=== PATIENT | female | born 1965 | race Caucasian/White ===

== ENCOUNTER 2017-08-16 18:57 | Emergency (ER) | payer OTHER ==
[~2017-08-16] VITALS: Ht 167.6 cm; Wt 66.5 kg
[~2017-08-16 18:57] MED LIST: BUPR150T3 PO; OMEG100037 PO; Topiramate PO; VITA200017 PO; Ziprasidone PO
[2017-08-16] MEDS ORDERED: IOHEXOL 350 MG/ML 10 ML VIAL (for RAD DIAG) IVCONTRAST ONE (18:58)
[2017-08-16 19:00] VITALS: BP 182/85; PULSE 140; RESP 18; TEMP 98.7; O2SAT 99
[2017-08-16] MEDS ORDERED: SODIUM CHLOR 0.9% 1000 ML INJ 1,000 ML IV SCH (19:16)
[2017-08-16 19:17] VITALS: BP 167/89; PULSE 119; RESP 18; O2SAT 98
[2017-08-16] MEDS ORDERED: BUPR300T PO (19:18)
[2017-08-16] MEDS ORDERED: TOPI200T7 PO (19:18)
[2017-08-16] MEDS ORDERED: TRAM50TA PO (19:19)
[2017-08-16] MEDS ORDERED: BACL10TA PO (19:19)
[2017-08-16] MEDS ORDERED: VITA100064 PO (19:19)
[2017-08-16] MEDS ORDERED: DIAZ5TAB PO (19:19)
[2017-08-16] MEDS ORDERED: CALC1TAB87 PO (19:20)
[2017-08-16] MEDS ORDERED: OMEG1CAP28 PO (19:20)
--- NOTE | 2017-08-16 19:28 | PD ---
HPI Chief Complaint: Abdominal Pain Time Seen by Provider: 19:16 Travel History International Travel<30 days: No Contact w/Intl Traveler<30days: No Traveled to known affect area: No History of Present Illness HPI 51-year-old female presents to the emergency department for complaint of 2 days of progressively worsening right lower quadrant abdominal pain. Patient does complain of some mild anorexia but denies fever chills nausea or vomiting. Patient's had no flank pain dysuria frequency urgency or hematuria. No diarrhea no report of black or tarry stools. Patient states symptoms worsened after rectal exam during her gynecologic visit on Sunday. Patient's been having umbilical pain intermittently for approximately 1 month. Patient has chronic low back pain with herniated lumbar disc and has at times referred pain. Patient states pain is not responding to tramadol. Patient was told by her managing physician she would need a CAT scan. Patient denies any injury or fall. Patient denies any referred lower extremity numbness tingling or weakness bladder or bowel dysfunction or saddle anesthesia. Patient rates pain as moderate to severe, 6/10. Patient is unable to identify specific exacerbating or alleviating factors. Past history is significant for lumbar disc disease osteoarthritis hysterectomy easy bruising dyslipidemia generalized anxiety disorder and episodic tachycardia. Patient reports she recently just had a pelvic exam that was unremarkable. Patient's had no abnormal vaginal discharge or vaginal bleeding; is not sexually active. [facility] Past Medical History Narrative Medical lumbar disc disease osteoarthritis hysterectomy easy bruising dyslipidemia generalized anxiety disorder w/ episodic tachycardia; no tobacco use no alcohol use; nursing notes reviewed Blood Disorders: Yes (before having hysterectomy) Bipolar Disorder: Yes Anxiety: Yes Cardiovascular Problems: Yes (high chol.) Tetanus Vaccination: > 5 Years Influenza Vaccination: No ?: Not Past Surgical History Hysterectomy: Yes Social History Alcohol Use: No Tobacco Use: No Substance Use: No Allergies-Medications (Allergen,Severity, Reaction): Coded Allergies: codeine (Unverified Allergy, Severe, Nausea/Vomiting, 08/16/17) erythromycin base (Unverified Allergy, Severe, Diarrhea, 08/16/17) Reported Meds & Prescriptions Reported Meds & Active Scripts Active Reported Calcium 600 with Vitamin D (Calcium Carbonate-Cholecalciferol) 600-400 mg-Unit Tab 1 Tab PO DAILY Ssvnd-9-Onrp Ethyl Esters 1 Gm Cap 1 Gm PO DAILY Diazepam 5 Mg Tab 5 Mg PO BID PRN Vitamin D3 (Cholecalciferol) 1,000 Unit Tab 1,000 Units PO DAILY Tramadol (Tramadol HCl) 50 Mg Tab 50 Mg PO Q8H PRN Baclofen 10 Mg Tab 10 Mg PO BID Topiramate 200 Mg Tab 200 Mg PO BID Bupropion HCl ER 24 HR (Bupropion HCl) 300 Mg Tab 300 Mg PO DAILY Review of Systems Except as stated in HPI: all other systems reviewed are Neg General / Constitutional: No: Fever, Chills HENT: No: Congestion Cardiovascular: No: Chest Pain or Discomfort Respiratory: No: Shortness of Breath Gastrointestinal: Positive: Abdominal Pain, No: Vomiting Genitourinary: No: Dysuria, Flank Pain Musculoskeletal: No: Myalgias, Arthralgias Skin: No Rash Neurologic: No: Weakness Psychiatric: Positive: Anxiety Hematologic/Lymphatic: No: Lymph Node Enlargement Physical Exam Narrative GENERAL: Well-developed well-nourished female no acute distress no respiratory distress SKIN: Warm and dry. No rash. HEAD: Normocephalic. EYES: No scleral icterus. No injection or drainage. NECK: Supple, trachea midline. No JVD or lymphadenopathy. CARDIOVASCULAR: Increased regular rate and rhythm without murmurs, gallops, or rubs. RESPIRATORY: Breath sounds equal bilaterally. No accessory muscle use. GASTROINTESTINAL: Abdomen soft, reproducible periumbilical and right lower quadrant tenderness to palpation without guarding or rebound, nondistended. MUSCULOSKELETAL: No cyanosis, or edema. BACK: Nontender without obvious deformity. No CVA tenderness. Data Data Last Documented VS Vital Signs Date Time Temp Pulse Resp B/P (MAP) Pulse Ox O2 Delivery O2 Flow Rate FiO2 08/16/17 20:23 90 16 137/65 (89) 99 Room Air 08/16/17 19:00 98.7 Orders Orders Complete Blood Count With Diff (08/16/17 19:16) Comprehensive Metabolic Panel (08/16/17 19:16) Lipase (08/16/17 19:16) Urinalysis - C+S If Indicated (08/16/17 19:16) Ct Abd/Pel W Iv Contrast(Rout) (08/16/17 19:16) Iv Access Insert/Monitor (08/16/17 19:16) Ecg Monitoring (08/16/17 19:16) Oximetry (08/16/17 19:16) Sodium Chlor 0.9% 1000 Ml Inj (Ns 1000 M (08/16/17 19:16) Sodium Chloride 0.9% Flush (Ns Flush) (08/16/17 19:30) Chest, Single Ap (08/16/17 19:16) Electrocardiogram (08/16/17 ) Morphine Inj (Morphine Inj) (08/16/17 19:30) Metoclopramide Inj (Reglan Inj) (08/16/17 19:30) Iohexol 350 Inj (Omnipaque 350 Inj) (08/16/17 18:58) Labs Laboratory Tests Test 08/16/17 19:30 08/16/17 20:00 White Blood Count 7.2 TH/MM3 Red Blood Count 4.22 MIL/MM3 Hemoglobin 12.5 GM/DL Hematocrit 38.7 % Mean Corpuscular Volume 91.5 FL Mean Corpuscular Hemoglobin 29.7 PG Mean Corpuscular Hemoglobin Concent 32.4 % Red Cell Distribution Width 12.3 % Platelet Count 280 TH/MM3 Mean Platelet Volume 8.1 FL Neutrophils (%) (Auto) 52.4 % Lymphocytes (%) (Auto) 35.2 % Monocytes (%) (Auto) 8.5 % Eosinophils (%) (Auto) 3.1 % Basophils (%) (Auto) 0.8 % Neutrophils # (Auto) 3.8 TH/MM3 Lymphocytes # (Auto) 2.5 TH/MM3 Monocytes # (Auto) 0.6 TH/MM3 Eosinophils # (Auto) 0.2 TH/MM3 Basophils # (Auto) 0.1 TH/MM3 CBC Comment DIFF FINAL Differential Comment Blood Urea Nitrogen 12 MG/DL Creatinine 1.20 MG/DL Random Glucose 120 MG/DL Total Protein 7.8 GM/DL Albumin 4.1 GM/DL Calcium Level 9.2 MG/DL Alkaline Phosphatase 58 U/L Aspartate Amino Transf (AST/SGOT) 20 U/L Alanine Aminotransferase (ALT/SGPT) 22 U/L Total Bilirubin 0.2 MG/DL Sodium Level 142 MEQ/L Potassium Level 3.7 MEQ/L Chloride Level 108 MEQ/L Carbon Dioxide Level 24.7 MEQ/L Anion Gap 9 MEQ/L Estimat Glomerular Filtration Rate 47 ML/MIN Lipase 244 U/L Urine Color YELLOW Urine Turbidity CLEAR Urine pH 6.5 Urine Specific [place] 1.010 Urine Protein NEG mg/dL Urine Glucose (UA) NEG mg/dL Urine Ketones NEG mg/dL Urine Occult Blood NEG Urine Nitrite NEG Urine Bilirubin NEG Urine Urobilinogen 0.2 MG/DL Urine Leukocyte Esterase TRACE Urine RBC 0-3 /hpf Urine WBC 3-5 /hpf Urine Squamous Epithelial Cells 6-8 /hpf Urine Bacteria NONE /hpf Urine Hyaline Casts 3-5 /lpf Microscopic Urinalysis Comment CULT NOT INDICATED MDM Medical Decision Making Medical Screen Exam Complete: Yes Emergency Medical Condition: Yes Medical Record Reviewed: Yes Interpretation(s) EKG normal sinus rhythm rate 86 normal axis and intervals no acute ST elevation injury pattern change noted CBC & BMP Diagram 08/16/17 19:30 Total Protein 7.8, Albumin 4.1, Calcium Level 9.2, Alkaline Phosphatase 58, Aspartate Amino Transf (AST/SGOT) 20, Alanine Aminotransferase (ALT/SGPT) 22, Total Bilirubin 0.2 ua: cx not indicated cxr: no free air Last Impressions Chest X-Ray 08/16/171915 Signed Impressions: CONCLUSION: No acute cardiopulmonary disease Abdomen/Pelvis CT 08/16/171915 Signed Impressions: CONCLUSION: 1. No acute inflammatory changes. 2. Small hepatic low-density, likely benign. Differential Diagnosis Abdominal pain, atypical appendicitis, renal colic, UTI, ruptured ovarian cyst, pelvic mass, diverticulitis, musculoskeletal/radicular pain Narrative Course Patient placed on traffic monitor specialist with continuous pulse oximetry IV access obtained specimens collected and sent for resulting patient given bolus normal saline EKG ordered and for pain morphine sulfate 2 mg IV along with Reglan 10 mg IV; CT abdomen pelvis with IV contrast ordered EKG sinus rhythm no acute abnormalities identified CBC and metabolic panel grossly normal range except for mild renal insufficiency creatinine 1.20; patient receiving bolus of normal saline At 8 PM patient reports symptomatic improvement after Reglan and morphine sulfate 2 mg IV CBC is automated differential grossly normal range metabolic panel grossly within normal range except mild renal insufficiency as previously noted urinalysis no bacteria, blood, wbc's, or indication for culture and sensitivity otherwise unremarkable; chest x-ray is negative for subdiaphragmatic free air; CT pending @ 8:40 Ct resulted essentially normal except noted "likely benign low density right lobe liver"; patient stable for opt mgt and close follow up with PCP; patient's questions answered to her satisfaction. Diagnosis Primary Impression: Pain, abdominal, nonspecific Additional Impression: Hepatic lesion Referrals: Primary Care Physician 1 day Patient Instructions: General Instructions Additional Instructions: Monitor temperature for fever take acetaminophen/Tylenol as needed for fever 100.4F greater Follow-up with your primary care provider regarding abdominal pain and CAT scan finding of low density on the liver as discussed Take pain medication as prescribed as needed Take Zofran as prescribed as needed for nausea and/or vomiting Return to the emergency department for any concerns or change in condition Med/Other Pt SpecificInfo: Prescription(s) given Scripts Ondansetron Odt (Zofran Odt) 4 Mg Tab 4 MG SL Q6HR Y for Nausea/Vomiting, #10 TAB 0 Refills Prov: Lila Marshall MD 08/16/17 Oxycodone-Acetaminophen (Percocet) 5-325 mg Tab 1 TAB PO Q6H Y for PAIN, #4 TAB 0 Refills Prov: Lila Marshall MD 08/16/17 Disposition: 01 DISCHARGE HOME Condition: Stable Lila Marshall MD Aug 16, 2017 19:28
[2017-08-16] MEDS ORDERED: SODIUM CHLORIDE 0.9% FLUSH 10 ML FLUSH IV FLUSH PRN (19:30)
[2017-08-16] MEDS ORDERED: METOCLOPRAMIDE HCL 10 MG/2 ML VIAL IV PUSH ONE (19:30)
[2017-08-16] MEDS ORDERED: MORPHINE SULFATE 4 MG/ML INJ IV PUSH ONE (19:30)
[2017-08-16 19:39] LABS: AUTOMATED NEUTROPHIL # 3.8 TH/MM3 (1.8-7.7); BASOPHIL # 0.1 TH/MM3 (0-0.2); BASOPHIL % 0.8 % (0.0-2.0); EOSINOPHIL # 0.2 TH/MM3 (0-0.4); EOSINOPHIL % 3.1 % (0.0-4.0); HEMATOCRIT 38.7 % (35.0-46.0); HEMOGLOBIN 12.5 GM/DL (11.6-15.3); LYMPH % 35.2 % (9.0-44.0); LYMPHOCYTE # 2.5 TH/MM3 (1.0-4.8); MEAN CELL VOLUME 91.5 FL (80.0-100.0); MEAN CORPUSCULAR HEMOGLOBIN 29.7 PG (27.0-34.0); MEAN CORPUSCULAR HGB CONC 32.4 % (32.0-36.0); MEAN PLATELET VOLUME 8.1 FL (7.0-11.0); MONO % 8.5 % (0.0-8.0); MONOCYTE # 0.6 TH/MM3 (0-0.9); NEUT % 52.4 % (16.0-70.0); PLATELET COUNT 280 TH/MM3 (150-450); RED BLOOD COUNT 4.22 MIL/MM3 (4.00-5.30); RED CELL DISTRIBUTION WIDTH 12.3 % (11.6-17.2); WHITE BLOOD COUNT 7.2 TH/MM3 (4.0-11.0)
[2017-08-16 19:48] LABS: CHLORIDE 108 MEQ/L (98-107); SODIUM (NA) 142 MEQ/L (136-145)
[2017-08-16 19:51] LABS: ALBUMIN 4.1 GM/DL (3.4-5.0); BICARBONATE 24.7 MEQ/L (21.0-32.0); CALCIUM 9.2 MG/DL (8.5-10.1); GLUCOSE,RANDOM 120 MG/DL (74-106)
[2017-08-16 19:52] LABS: BLOOD UREA NITROGEN 12 MG/DL (7-18)
[2017-08-16 19:54] LABS: ALT (GPT) 22 U/L (10-53); AST (GOT) 20 U/L (15-37); GLOMERULAR FILTRATION RATE 47 ML/MIN (>89)
[2017-08-16 19:56] LABS: TOTAL BILIRUBIN ADULT 0.2 MG/DL (0.2-1.0); TOTAL PROTEIN 7.8 GM/DL (6.4-8.2)
[2017-08-16 19:57] LABS: ALKALINE PHOSPHATASE 58 U/L (45-117)
--- NOTE | 2017-08-16 20:08 | RADRPT ---
EXAM DATE: 08/16/2017 8:04 PM EDT AGE/SEX: 51 years / Female INDICATIONS: Right lower abdominal pain and shortness of breath. CLINICAL DATA: This is the patient's initial encounter. Patient reports that signs and symptoms have been present for 3 days and indicates a pain score of 5/10. MEDICAL/SURGICAL HISTORY: . Bipolar disorder. Hysterectomy. COMPARISON: No prior exams available for comparison. FINDINGS: A single AP view of the chest demonstrates the lungs to be symmetrically aerated without evidence of mass, infiltrate or effusion. The cardiomediastinal contours are unremarkable. Osseous structures a re intact. CONCLUSION: No acute cardiopulmonary disease Electronically signed by: George Mayes MD 08/16/2017 8:07 PM EDT
[2017-08-16 20:15] LABS: BILIRUBIN, URINE NEG (NEG); BLOOD, URINE NEG (NEG); GLUCOSE,URINE NEG (NEG); KETONE, URINE NEG (NEG); NITRITE,URINE NEG (NEG); PH, URINE 6.5 (5.0-8.5); URINE COLOR YELLOW (YELLW/STRAW); URINE LEUKOCYTE ESTERASE TRACE (NEG)
[2017-08-16 20:19] LABS: RBC, URINE 0-3 /hpf (0-3)
[2017-08-16 20:23] VITALS: BP 137/65; PULSE 90; RESP 16; O2SAT 99
--- NOTE | 2017-08-16 20:30 | RADRPT ---
EXAM DATE: 08/16/2017 8:23 PM EDT AGE/SEX: 51 years / Female INDICATIONS: Right lower quadrant pain for 2 days. CLINICAL DATA: This is the patient's initial encounter. Patient reports that signs and symptoms have been present for 2 days and indicates a pain score of 6/10. MEDICAL/SURGICAL HISTORY: Cardiovascular disease. Osteoporosis. Throat cancer, Cervical cancer . Hysterectomy. ORAL CONTRAST: No oral contrast ingested. RADIATION DOSE: 6.73 CTDI (mGy) COMPARISON: No prior exams available for comparison. TECHNIQUE: Multiple contiguous axial images were obtained through the abdomen and pelvis following b olus infusion of 92 ml Omnipaque 350 (iohexol) nonionic water-soluble contrast as a single exam dos e. No oral contrast ingested. Using automated exposure control and adjustment of the mA and/or kV ac cording to patient size, the radiation dose was kept as low as reasonably achievable to obtain optima l diagnostic quality images. FINDINGS: Lower Lungs: The visualized lower lungs are clear. Liver: The liver has a homogeneous density without space-occupying lesion. There is no dilation of th e biliary tree. Spleen: Homogeneous density without enlargement. Right hepatic low-density Pancreas: Unremarkable without mass or calcification. Kidneys: Normal in size and shape. No evidence of mass or hydronephrosis. Adrenal Glands: Unremarkable. Aorta: The aorta and proximal iliac vessels are grossly unremarkable without aneurysmal dilation. Bowel/Mesentery: The bowel loops are grossly unremarkable. The cecum and sigmoid colon have a normal configuration. Appendix is normal. Abdominal Wall: Intact. Retroperitoneum: No evidence of adenopathy in the retrocrural, para-aortic, or deep pelvic regions. Bladder: Contours are smooth. Reproductive Organs: No abnormal masses or calcifications seen. Inguinal: The inguinal region is unremarkable without evidence of adenopathy. Bony Structures: Unremarkable. CONCLUSION: 1. No acute inflammatory changes. 2. Small hepatic low-density, likely benign. Electronically signed by: George Mayes MD 08/16/2017 8:29 PM EDT
[2017-08-16] MEDS ORDERED: ZOFR4TAB3 SL (20:49)
[2017-08-16] MEDS ORDERED: PERC5TAB12 PO (20:49)
[2017-08-16 20:55] VITALS: BP 137/66
--- NOTE | 2017-08-17 07:09 | EKG ---
Date Performed: 08/16/2017 Time Performed: 19:52:37 PTAGE: 51 years EKG: Sinus rhythm POSSIBLE LEFT ATRIAL ENLARGEMENT BORDERLINE ECG NO PREVIOUS TRACING DOCTOR: Edwin Champion Interpretating Date/Time 08/17/2017 07:06:42
== END 2017-08-16 21:03 | disposition home or self-care (01) ==
LOC: PHED 18:57
DX: R10.9 Unspecified abdominal pain (principal); K76.9 Liver disease, unspecified; N28.9 Disorder of kidney and ureter, unspecified; R94.31 Abnormal electrocardiogram [ECG] [EKG]; G89.29 Other chronic pain; M54.5 Low back pain; M19.90 Unspecified osteoarthritis, unspecified site; E78.5 Hyperlipidemia, unspecified; F41.9 Anxiety disorder, unspecified; F31.9 Bipolar disorder, unspecified
CPT/HCPCS: 71045; 74177; 80053; 81001; 83690; 85025; 93005; 96361; 96374; 96375; 99285; J2270; J2765; J7030; Q9967